=== PATIENT | male | born 1970 | race Caucasian/White ===

== ENCOUNTER 2019-07-10 07:07 | Day surgery (SDC) | payer BC ==
[2019-07-09 09:33] VITALS: BMI 25.4
[2019-07-10] MEDS ORDERED: EPINEPHrine 1 MG/ML AMP ONE (08:42)
[2019-07-10] MEDS ORDERED: Fentanyl 100 MCG/2 ML VIAL ONE ×2 (08:48→08:58)
[2019-07-10] MEDS ORDERED: Midazolam HCl 2 mg/2 ml Vial ONE (08:57)
[2019-07-10] MEDS ORDERED: SUGAMMADEX SODIUM 200 MG/2 ML VIAL ONE (09:35)
[2019-07-10] MEDS ORDERED: Ondansetron PF 4 MG/2 ML Vial ONE (09:47)
[2019-07-10] MEDS ORDERED: Glycopyrrolate 0.2 MG/ML 5 ML SYRINGE ONE (09:47)
[2019-07-10] MEDS ORDERED: Succinylcholine Chloride 20 MG/ML 10 ml SYRINGE FS ONE (09:47)
[2019-07-10] MEDS ORDERED: Dexamethasone 20 MG/5 ML VIAL ONE (09:47)
[2019-07-10] MEDS ORDERED: EPHEDRINE 25 MG/5 ML SYRINGE ONE (09:47)
[2019-07-10] MEDS ORDERED: PROPOFOL 200 MG/20 ML VIAL ONE (09:47)
[2019-07-10] MEDS ORDERED: Lidocaine 1% PF 5 ML VIAL ONE (09:47)
[2019-07-10] MEDS ORDERED: PHENYLEPHRINE-NS 100 MCG/ML 10 ML SYRINGE ONE (09:47)
--- NOTE | 2019-07-11 09:12 | OP ---
DATE OF PROCEDURE: 07/10/2019 PREOPERATIVE DIAGNOSIS: Left mid cord, true vocal fold mass. POSTOPERATIVE DIAGNOSIS: Left mid cord, true vocal fold mass. PERMIT: Risks and benefits of the procedure were discussed with the patient including hoarseness, dysphonia, scarring, and need for revision surgery or repair as well as the damage to teeth, lips, tongue and oral cavity. The patient was understanding and a paper form of the consent is available for review in the paper chart. 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 Found on flexible laryngoscopy in the clinic to have a left true vocal fold mass that was obstructing the glottic closure and found at the surface of the nora glottitis and the patient was taken to the operating room for operative intervention. ASSISTANTS: None. FINDINGS: Left true vocal fold mass. PROCEDURES PERFORMED: Microscope and suspension laryngoscopy and microlaryngeal flap with removal and excision of left true vocal fold mass. PROCEDURE IN DETAIL: The patient was identified in the preoperative holding area and brought back to the operating room, where the surgical time-out was completed. General endotracheal anesthesia was administered with 5.0 microlaryngeal endotracheal tube and the patient was positioned. The head of the bed was turned 90 degrees to the right. Next, the Dedo laryngoscope was used to examine the glottis. Upon good visualization, the laryngoscope was suspended and the microscope was brought into place. Attention was turned to the left true vocal fold, where there was a mid fold mass. Straight scissors and graspers to the left were used to grasp the vocal fold and make a small incision on the left lateral aspect of the mass. Microlaryngeal elevator was then used to elevate the tissue of the vocal fold off the mass and cup forceps were used to grab the mass and then scissors to the right were then used to dissect sharply the mass from the vocal fold and then the vocal fold tissue was replaced over the excised area. The nodule was then removed and there was no bleeding to be seen and no active bleeding after the procedure was completed. The patient was turned 90 degrees towards Anesthesia for emergence. This concluded the surgery. The patient was turned over to Anesthesia. There were no complications and the patient tolerated the procedure well. Job ID: [id number] [facility]
== END 2019-07-10 13:00 | disposition home or self-care (01) ==
LOC: SDC 07:07
PROVIDERS: ATTEND Student in an Organized Health Care Education/Training Program
PROC: 0CBV8ZZ Excision of Left Vocal Cord, Via Natural or Artificial Opening Endoscopic (ICD-10-PCS; principal; 2019-07-10)
DX: J38.2 Nodules of vocal cords (principal); K21.9 Gastro-esophageal reflux disease without esophagitis; G47.30 Sleep apnea, unspecified; Z79.899 Other long term (current) drug therapy; Z90.49 Acquired absence of other specified parts of digestive tract
CPT/HCPCS: J0171; J1100; J2001; J2250; J2405; J2704; J3010